=== PATIENT | male | born 1975 | race Caucasian/White ===

== ENCOUNTER → 2016-05-26 | Outpatient (CLI) | payer BC ==
--- NOTE | 2016-05-26 20:12 | MR ---
EXAMINATION TYPE: MR knee LT wo con DATE OF EXAM: 05/26/2016 7:22 PM COMPARISON: Outside radiographs 05/12/2016 HISTORY: 41-year-old male knee pain for 2 to 3 years. TECHNIQUE: Multiplanar, multisequence imaging of the left knee is performed without IV contrast. FINDINGS: The ACL, PCL, MCL, and LCL complex remain intact. The medial meniscus shows a tiny 3.5 mm parameniscal cyst near the posterior root with a small superi or surface meniscal tear, sagittal image 19. Otherwise, the medial meniscus remains intact. There is marginal spurring within the medial compartment with overall preserved cartilage volume. There is an oblique tear involving the anterior horn of the lateral meniscus with a 6 mm parameniscal cyst near the anterior root. While there is lateral compartment marginal spurring, overall lateral c ompartment articular cartilage is maintained. Evaluation of the patellofemoral compartment shows severe loss of articular cartilage along the later al trochlear facet with lateral patellar translation and lateral patellar tilt and additional severe cartilage loss along the lateral patellar facet. There is marginal spurring, subchondral sclerosis, a nd reactive marrow edema along the abutting lateral facets. The TT-TG distance is borderline to mildly increased at 2.0 cm which may be contributing to the later al patellar translation. 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 There is a 9.8 mm loose body in the anterior knee joint. Additionally, there is edema within Hoffa's fat located inferior and lateral to the patella and a sma ll knee joint effusion with mild chronic synovitis no significant Cazares cyst. Extensor mechanism remains intact with trace effusion in the deep infrapatellar bursa. Normal popliteal artery anatomy. Mild diffuse muscular atrophy. No suspicious bone marrow replacement . Prominent varices in the medial subcutaneous soft tissues. IMPRESSION: 1. Moderate overall patellofemoral compartment osteoarthrosis though with severe full-thickness carti carter loss along the lateral patellar and trochlear facets. 2. Lateral patellar tilt and translation. The TT-TG distance is borderline to mildly increased at 2.0 cm. 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 These may be contributing to some degree of patellar inst ability and patellar tracking disorder. Clinically correlate. 3. Tiny superior surface tear at the medial meniscus posterior root with a 3.5 mm parameniscal cyst. 4. Oblique tear anterior horn of the lateral meniscus with a 6 mm parameniscal cyst. 5. Small knee joint effusion with a 1 cm anterior loose body and mild chronic synovitis. 6. Some focal edema within Hoffa's fat inferior and lateral to the patella can be seen with fat pad i mpingement syndrome.
== END | disposition home or self-care (01) ==
LOC: RADMRIMAIN 18:29
PROVIDERS: ATTEND Orthopaedic Surgery
DX: M17.12 Unilateral primary osteoarthritis, left knee (principal); S83.282A Other tear of lateral meniscus, current injury, left knee, initial encounter; S83.242A Other tear of medial meniscus, current injury, left knee, initial encounter; M65.862 Other synovitis and tenosynovitis, left lower leg

== ENCOUNTER → 2018-06-24 | Outpatient (CLI) | payer BC ==
--- NOTE | 2018-06-24 19:36 | MR ---
EXAMINATION TYPE: MR shoulder LT wo con DATE OF EXAM: 06/24/2018 COMPARISON: Plain film 05/17/2017 HISTORY: LT SHOULDER PAIN TECHNIQUE: Multiplanar, multisequence imaging of the left shoulder is performed without contrast. FINDINGS: There is motion on the exam. Rotator Cuff: There is abnormal increased signal within the rotator cuff without sameera tear. Small fo cus of fluid signal at the undersurface of the rotator cuff may be due to small partial undersurface tear. Acromioclavicular Joint: There is some arthropathy change present. Glenohumeral Joint: Maintained Labrum: The labrum appears grossly intact given limitation of non-arthrogram study. Biceps Tendon: The long head of biceps is in normal location within bicipital groove. Some fluid sign al along the long head of biceps tendon. Bone marrow signal: No focal abnormal marrow signal is appreciated. Other: No additional significant abnormality is appreciated. IMPRESSION: Tendinosis of the rotator cuff, correlate for impingement. Possible small undersurface tear. Motion o n the exam could limit sensitivity.
== END | disposition home or self-care (01) ==
LOC: RADMRIMAIN 17:38
PROVIDERS: ATTEND Orthopaedic Surgery
DX: M75.82 Other shoulder lesions, left shoulder (principal)